=== PATIENT | male | born 1965 | race Two or more races ===

== ENCOUNTER 2024-11-10 12:25 | Emergency (ER) | payer MEDICAID, OTHER ==
[~2024-11-10] VITALS: Ht 162.6 cm; Wt 89.9 kg
[2024-11-10] MEDS: LIDOCAINE W/ EPINEPHRINE 2% INJ 20ML VIAL ID ONE (13:30)
--- NOTE | 2024-11-10 13:39 | ED.PDOC ---
History of Present Illness HPI Comments 58-year-old male who comes in with chief complaint of status post fall. The patient was working on his car and fell off a stand. The patient landed on the front of his head as well as suffering a small laceration just above the eye. There was no loss of consciousness or syncope. There has been no nausea, vomiting or diarrhea. The patient was admits to a small amount of alcohol today. Chief Complaint: Head Injury Time Seen by MD: 13:15 Reviewed Notes: Nurses Notes, Medications, Allergies (No allergies to medications) Allergies: Coded Allergies: NO KNOWN ALLERGIES (Unverified , 02/26/12) Information Source: Patient, Relative (Child) Mode of Arrival: Ambulatory Severity: Moderate Timing: Hours Duration: Since onset Prehospital treatment: None Location: Small laceration above the right eye Associated signs and symptoms No nausea, vomiting or diarrhea Past Medical History PAST MEDICAL HISTORY: Denies Surgical History: Denies all surgeries Family History Family History: No family hx of Cancer, No family hx of DM, No family hx of Heart jaret, No family hx of HTN Social History Smoker: Non-Smoker Alcohol: Occasionally Drugs: Denies Drug Use Lives In: Home Constitutional: denies: chills, diaphoresis, fatigue, fever, malaise, sweats, weakness, others EENTM: denies: blurred vision, double vision, ear bleeding, ear discharge, ear drainage, ear pain, ear ringing, eye pain, eye redness, hearing loss, mouth pain, mouth swelling, nasal discharge, nose bleeding, nose congestion, nose pain, photophobia, tearing, throat pain, throat swelling, voice changes, others Respiratory: denies: cough, hemoptysis, orthopnea, SOB at rest, shortness of breath, SOB with excertion, stridor, wheezing, others Cardiovascular: denies: chest pain, dizzy spells, diaphoresis, Dyspnea on exertion, edema, irregular heart beat, left arm pain, lightheadedness, palpitations, PND, syncope, others Gastrointestinal: denies: abdomen distended, abdominal pain, blood streaked bowels, constipated, diarrhea, dysphagia, difficulty swallowing, hematemesis, melena, nausea, poor appetite, poor fluid intake, rectal bleeding, rectal pain, vomiting, others Genitourinary: denies: burning, dysuria, flank pain, frequency, hematuria, incontinence, penile discharge, penile sore, pain, testicle pain, testicle swelling, urgency, others Neurological: reports: headache; denies: dizziness, fainting, left sided numbness, left sided weakness, numbness, paresthesia, pre-existing deficit, right sided numbness, right sided weakness, seizure, speech problems, tingling, tremors, weakness, others Musculoskeletal: denies: back pain, gout, joint pain, joint swelling, muscle pain, muscle stiffness, neck pain, others Integumetry: reports: laceration (Small laceration above the right eye); denies: bruises, change in color, change in hair/nails, dryness, lesions, lumps, rash, wounds, others Allergic/Immunocompromised: denies: Difficulty Healing, Frequent Infections, Hives, Itching, others Hematologic/Lymphatic: denies: anemia, blood clots, easy bleeding, easy bruising, swollen glands, others Endocrine: denies: excessive hunger, excessive sweating, excessive thirst, excessive urination, flushing, intolerance to cold, intolerance to heat, unexplained weight gain, unexplained weight loss, others Psychiatric: denies: anxiety, bipolar disorder, depression, hopeless, panic disorder, schizophrenia, sleepless, suicidal, others Physical Exam General Appearance: Mild Distress HEENT: Normal ENT Inspection, Pharynx Normal, TMs Normal Neck: Full Range of Motion, Non-Tender, Normal, Normal Inspection Respiratory: Chest Non-Tender, Lungs Clear, No Accessory Muscle Use, No Respiratory Distress, Normal Breath Sounds Cardiovascular: No Edema, No JVD, No Murmur, No Gallop, Normal Peripheral Pulses, Regular Rate/Rhythm Breast Exam: Deferred Gastrointestinal: No Organomegaly, Non Tender, No Pulsatile Mass, Normal Bowel Sounds, Soft Genitalia: Deferred Pelvic: Deferred Rectal: Deferred Extremities: No calf tenderness, Normal capillary refill, Normal inspection, Normal range of motion, Non-tender, No pedal edema Musculoskeletal : Apperance: Normal Neurologic: Alert, rn neonatal icu II-XII nml as Tested, No Motor Deficits, Normal Affect, Normal Mood, No Sensory Deficits Cerebellar Function: Normal Reflexes: Normal Skin: Dry, Lacerations (Stellate laceration over the right eye measuring approximately 3 cm), Normal Color, Warm Lymphatic: No Adenopathy Was a procedure done? Was a procedure done?: Yes Sedation Sedation?: No Laceration Repair : Location LEFT EYEBROW Length 3CM Anesthetic: Lidocaine Laceration Repair Prep: Saline Laceration Repair Wound Comple: epidermis/dermis repair Laceration Repair: Number of sutures (4 ) Informed consent obtained: Yes Risks, benefits, and alternati: Yes EKG EKG : Pulse Rate (adult): 70 [place]: Normal Cardiac Rhythm: NSR Block: None ST: Nonsp Images 1 - 3 cm stellate laceration Differential Dx Considerations may include: Fracture, strain, contusion, blunt head trauma, concussion X-Ray, Labs, Meds, VS Vital Signs Date Time Temp Pulse Resp B/P (MAP) Pulse Ox O2 Delivery O2 Flow Rate FiO2 11/10/24 13:39 70 11/10/24 13:14 75 11/10/24 13:04 98.1 75 18 174/80 (111) 97 98.[address] a CT scan of the head which shows: No sign of any abnormalities. The patient has a laceration and so we sutured it in the patient tolerated the procedure well. The patient denies any other complaints at this time. The patient was being discharged with his daughter The patient will follow up with the primary care doctor. Trauma instructions were given to the patient. Images Reviewed?: Images reviewed and evaluated by me Time of 1ST Reevaluation: 13:39 Reevaluation 1ST: Improved Time of 2ND Reevaluation: 15:56 Reevaluation 2ND: Improved Patient Education/Counseling: Diagnosis, Treatment, Prognosis, Need For Follow Up Family Education/Counseling: Diagnosis, Treatment, Prognosis, Need For Follow Up Departure 1 Departure Time of Disposition: 15:55 Impression: Primary Impression: Blunt head trauma Qualified Codes: S09.8XXA - Other specified injuries of head, initial encounter Additional Impressions: Forehead laceration Qualified Codes: S01.81XA - Laceration without foreign body of other part of head, initial encounter History of fall Disposition: 01 HOME / SELF CARE / HOMELESS Condition: Fair Discharged With: Self Critical Care Note Critical Care Time?: No Stability Stability form required: No Heart Score Heart Score: Heart Score Response (Comments) Value History N/A 0 EKG N/A 0 Age N/A 0 Risk Factors N/A 0 Troponin N/A 0 Total 0 I personally scribed for LAURENCE MEHTA MD ([email or web address]) on 11/10/24 at 15:54. Electronically submitted by Marine Avery ([email or web address]). LAURENCE MEHTA MD Nov 10, 2024 13:39
--- NOTE | 2024-11-10 14:08 | DVH ---
CLINICAL INFORMATION: 58 years old, Male; FALL INJURY. TECHNIQUE: Axial imaging was obtained through the brain without contrast. Coronal and sagittal reform atted images were obtained, reviewed, and stored. Images were reviewed in brain and bone windows. Al l CT scans at this medical facility are performed using dose modulation techniques as appropriate to a performed exam including the following: Automated exposure control was utilized; adjustment of the MA and/or KV according to patient size; and use of iterative reconstruction technique. CTDIvol = 57.9 4 mGy DLP = 1024.69 mGy-cm COMPARISON: None FINDINGS: There is no acute intracranial hemorrhage. No mass effect or midline shift. The ventricles and sulci are within normal limits in size for age. Basal cisterns are patent. The calvarium is unre markable. Moderate mucosal thickening of the paranasal sinuses with areas of partial opacification. IMPRESSION: No CT evidence of acute intracranial abnormality. Nonacute findings as described above.
--- NOTE | 2024-11-10 14:16 | ECG ---
[facility] Test Date: 2024-11-10 Test Time: 13:14:08 Pat Name: GERMÁN SAUNDERS Department: ED Room: Gender: M Manager Retirement: : 1965 Requested By: LAURENCE MEHTA Order Number: [id number] Reading MD: Dario Manzano Measurements Intervals [place] Rate: 75 P: 38 MI: 145 QRS: 66 QRSD: 99 T: 15 QT: 407 QTc: 455 Interpretive Statements Sinus rhythm Electronically Signed On 11-11-2024 22:38:47 PDT by Dario Manzano Please click the below link to view image of tracing.
[2024-11-10] MEDS: BACITRACIN TOP OINT 1 UD PKG TOP ONE (16:55)
[2024-11-10] MEDS: HYDROcodone-ACET 10/325MG TAB PO ONE (16:55)
[2024-11-10 17:00] VITALS: BP 165/81; PULSE 90; RESP 19; TEMP 98.3; O2SAT 94
== END 2024-11-10 17:00 | disposition home or self-care (01) ==
LOC: ER 12:25
DX: S01.81XA Laceration without foreign body of other part of head, initial encounter (principal); S09.90XA Unspecified injury of head, initial encounter; Z79.899 Other long term (current) drug therapy; W19.XXXA Unspecified fall, initial encounter; Y93.89 Activity, other specified; Y92.89 Other specified places as the place of occurrence of the external cause; Y99.8 Other external cause status
CPT/HCPCS: 12013; 70450; 93005